=== PATIENT | female | born 1965 | race African-American/Black ===

== ENCOUNTER 2018-11-08 09:14 | Emergency (ER) | payer MEDICAID ==
[~2018-11-08] VITALS: Ht 167.6 cm; Wt 99.3 kg
[2018-11-08 09:18] VITALS: BP 143/64
[2018-11-08] MEDS ORDERED: NKM (09:23)
--- NOTE | 2018-11-08 09:47 | Emergency Room Report ---
History of Present Illness General Chief Complaint: Lower Back Pain or Injury Source: Patient Present Illness HPI 53-year-old female presents after increased low back pain. Patient reports having fallen off of a object approximately 3 weeks ago. She reports having persistent pain. She reports having intermittent leakage of urine. She reports having some bladder fullness. She denies any vomiting. She reports having some intermittent abdominal pain. Patient states she fell approximately 3 feet onto a sand. She reports having pain primarily to the left side of her low back. She had been able to ambulate without assistance. Reports having intermittent worsening pain. Pain is worse with left lateral flexion. She reports having bilateral lower extremity pain this does not go below her thigh Allergies: Coded Allergies: No Known Allergies (Unverified , 11/08/18) Patient History Past Medical History: see triage record Last Menstrual Period: Reviewed Nursing Documentation: PMH: Agreed; PSxH: Agreed Nursing Documentation-[facility] Past Medical History: No Stated History Review of Systems All Other Systems: negative except mentioned in HPI Physical Exam Vital Signs Date Time Temp Pulse Resp B/P (MAP) Pulse Ox O2 Delivery O2 Flow Rate FiO2 11/08/18 09:18 97.7 60 16 143/64 (90) 99 Room Air Sp02 EP Interpretation: reviewed, normal General Appearance: normal inspection, well appearing, no apparent distress, alert, GCS 15, non-toxic Head: atraumatic ENT: normal ENT inspection, hearing grossly normal, normal voice Neck: normal inspection, full range of motion, supple, no bony tend Respiratory: normal inspection, lungs clear, normal breath sounds, no respiratory distress, no retraction, no wheezing Cardiovascular #1: regular rate, rhythm, no edema Gastrointestinal: normal inspection, normal bowel sounds, non tender, soft, no guarding, no hernia Genitourinary: no CVA tenderness Musculoskeletal: normal inspection, back normal, normal range of motion Neurologic: normal inspection, alert, responsive, speech normal Psychiatric: normal inspection, judgement/insight normal, mood/affect normal Medical Decision Making Diagnostic Impression: Primary Impression: Low back pain Additional Impression: Facet arthropathy, lumbar ER Course Patient presented for low back pain. Differential diagnosis included but was not limited to herniated disc, cauda equina syndrome, abdominal aortic aneurysm , perforated ulcer, spinal epidural abscess, spinal stenosis, lumbar fracture, metastatic lesion, pyelonephritis. Patient was noted to be ambulatory without assistance. She does report some incontinence and so MRI was ordered. MRI read by radiology showed no evidence of acute injury mild lower lumbar facet arthropathy was noted. Not appear to have any evidence of acute neurologic deficit. She was given prescription for symptomatic treatment. She was advised to recheck with primary care physician in 1-2 days. Patient to return for any worsening, pain, fever, or other concerns. Labs Test 11/08/18 09:25 Urine Color Pale yellow Urine Appearance Clear Urine pH 5 (4.5-8.0) Urine Specific [place] 1.020 (1.005-1.035) Urine Protein Negative (NEGATIVE) Urine Glucose (UA) Negative (NEGATIVE) Urine Ketones Negative (NEGATIVE) Urine Blood 1+ (NEGATIVE) Urine Nitrite Negative (NEGATIVE) Urine Bilirubin Negative (NEGATIVE) Urine Urobilinogen Normal MG/DL (0.0-1.0) Urine Leukocyte Esterase Negative (NEGATIVE) Urine RBC 2-4 /HPF (0 - 2) Urine WBC 0-2 /HPF (0 - 2) Urine Squamous Epithelial Cells Moderate /LPF (NONE/OCC) Urine Bacteria Few /HPF (NONE) Urine HCG, Qualitative Negative (NEGATIVE) Last Vital Signs Date Time Temp Pulse Resp B/P (MAP) Pulse Ox O2 Delivery O2 Flow Rate FiO2 11/08/18 09:18 97.7 60 16 143/64 (90) 99 Room Air Status: improved Disposition: HOME, SELF-CARE Condition: Stable Scripts Cyclobenzaprine Hcl* (FLEXERIL*) 10 Mg Tablet 10 MG ORAL TID PRN for Muscle Spasm, #20 TAB Prov: Allan Alexander MD 11/08/18 Allan Alexander MD Nov 08, 2018 09:47
--- NOTE | 2018-11-08 10:00 | NUR ---
ED Nurse Note: Patient walked in to ER due to increased pressure pain in the pelvic and low back with intermittent loss of bladder control; s/p fall 3 weeks ago. Seen by [facility] at that time. Patient states 'I just fell' and patient does not state which side she fell on. Patient awake, alert, oriented x4. Regular, unlabored breathing noted. Ambulating to the room with steady gait. No limping noted. Sitting in bed without facial grimacing or guarding/using cell phone.
--- NOTE | 2018-11-08 10:00 | NUR ---
ED Nurse Note: Yellow urine collected and sent.
[2018-11-08 10:14] LABS: APPEARANCE,URINE CLEAR; BILIRUBIN, URINE NEGATIVE (NEGATIVE); COLOR,URINE PALE YELLOW; GLUCOSE, URINE (UA) NEGATIVE (NEGATIVE); KETONES,URINE NEGATIVE (NEGATIVE); LEUKOCYTE ESTERASE ,URINE NEGATIVE (NEGATIVE); NITRITE,URINE NEGATIVE (NEGATIVE); PH,URINE 5 (4.5-8.0); PROTEIN,URINE NEGATIVE (NEGATIVE); UROBILINOGEN,URINE NORMAL MG/DL (0.0-1.0)
--- NOTE | 2018-11-08 11:37 | NUR ---
ED Nurse Note: Patient back from MRI scan. Sitting in bed without facial grimacing or guarding. Friend at bedside.
--- NOTE | 2018-11-08 11:44 | Diagnostic Imaging Report ---
Indication: Back pain Technique: MRI examination of the lumbar spine was performed in a 1.5 Karo magnet. Sequences obtained include sagittal and axial T1 and T2 fast spin echo, and sagittal STIR. Comparison: none Findings: Height and configuration of the vertebral bodies are within normal limits. Bone marrow signal is normal. Alignment is normal. There is no evidence of stenosis of the central canal or neural foramen. The height and configuration of the intervertebral discs are normal. The lumbar facets at L4-5 and L5-S1 are mildly hypertrophic particularly at L4-5 consistent with facet arthropathy. Hypertrophied ligamentum flavum noted. The visualized part of the distal spinal cord is unremarkable. Conus medullaris seen at T12/L1. No paraspinous or paravertebral soft tissue abnormality seen. No abnormal fluid collections are identified. IMPRESSION: No evidence of acute injury. Mild lower lumbar facet arthropathy noted. No evidence of significant stenosis of the central canal, lateral recess or neural foramen.
[2018-11-08] MEDS ORDERED: CYCLOBENZAPRINE10 MG ORAL ×2 (12:08→12:14)
[2018-11-08 12:25] VITALS: BP 143/64
--- NOTE | 2018-11-08 12:25 | NUR ---
ER DISCHARGE NOTE: Patient is cleared to be discharged per ERMD, pt is aox4, on room air, with stable vital signs. pt was given dc and prescription instructions, pt was able to verbalize understanding, pt id band removed without complications. pt is able to ambulate with steady gait. pt took all belongings.
== END 2018-11-08 12:25 | disposition home or self-care (01) ==
LOC: EMR 09:30
DX: M54.5 Low back pain (principal); M46.96 Unspecified inflammatory spondylopathy, lumbar region
CPT/HCPCS: 72148; 81003; 81025; Z7502; 99284

== ENCOUNTER 2019-06-07 20:02 | Emergency (ER) | payer SELFPAY ==
[~2019-06-07] VITALS: Ht 167.6 cm; Wt 97.5 kg
[~2019-06-07 20:02] MED LIST: CYCLOBENZAPRINE10 MG ORAL; NKM
--- NOTE | 2019-06-07 20:09 | NUR ---
pt not in lobby, no answer, left department
[2019-06-07 20:30] VITALS: BP 123/62
--- NOTE | 2019-06-07 20:30 | NUR ---
ED Nurse Note: Patient walked in to ER from home c/o lower abdominal pain x 3 months, states took test 3 mons ago, no f/u, now cramping, no bleeding, pain at 10/10.
--- NOTE | 2019-06-07 20:39 | NUR ---
Urine sample collected, sent.
--- NOTE | 2019-06-07 20:47 | Emergency Room Report ---
History of Present Illness General Chief Complaint: Abdominal Pain Source: Patient Present Illness HPI 53-year-old female presents to ED complaining of cramping pain. States she had the pain on and off for the last 3 months. Dull, 3 out of 10, nonradiating. Denies any vaginal bleeding. Denies any discharge. Denies that she took a test 3 months ago and states she was . Denies having any follow-up since there. Denies any nausea or vomiting. No other aggravating relieving factors. Denies any other associated symptoms Allergies: Coded Allergies: No Known Allergies (Unverified , 11/08/18) COVID-19 Screening Contact w/high risk pt: No Recent Travel to affected area: No Experienced COVID-19 symptoms?: No COVID-19 symptoms experienced: Fever (T>100.4F or >38C) Patient History Past Medical History: none Past Surgical History: none Pertinent Family History: none Social History: Denies: smoking, alcohol use, drug use Now: No Immunizations: UTD Reviewed Nursing Documentation: PMH: Agreed; PSxH: Agreed Review of Systems All Other Systems: negative except mentioned in HPI Physical Exam Vital Signs Date Time Temp Pulse Resp B/P (MAP) Pulse Ox O2 Delivery O2 Flow Rate FiO2 06/07/19 20:15 97.5 80 16 123/62 (82) 95 Room Air Sp02 EP Interpretation: reviewed, normal General Appearance: no apparent distress, alert, GCS 15, non-toxic, obese Head: normocephalic, atraumatic Eyes: bilateral eye normal inspection, bilateral eye PERRL ENT: hearing grossly normal, normal pharynx, no angioedema, normal voice Neck: full range of motion, supple/symm/no masses Respiratory: chest non-tender, lungs clear, normal breath sounds, speaking full sentences Cardiovascular #1: regular rate, rhythm, no edema Cardiovascular #2: 2+ carotid (R), 2+ carotid (L), 2+ radial (R), 2+ radial (L) , 2+ dorsalis pedis (R), 2+ dorsalis pedis (L) Gastrointestinal: normal bowel sounds, non tender, soft, non-distended, no guarding, no rebound Rectal: deferred Genitourinary: normal inspection, no CVA tenderness Musculoskeletal: back normal, normal range of motion, gait/station normal, non- tender Neurologic: alert, motor strength/tone normal, oriented x3, sensory intact, responsive, speech normal Psychiatric: judgement/insight normal, memory normal, mood/affect normal, no suicidal/homicidal ideation Reflexes: 3+ bicep (R), 3+ bicep (L), 3+ tricep (R), 3+ tricep (L), 3+ knee (R) , 3+ knee (L) Skin: no rash Lymphatic: no adenopathy Medical Decision Making Diagnostic Impression: Primary Impression: Pelvic cramping ER Course Hospital Course 53-year-old female presents with pelvic cramping with dysuria Differential diagnoses include: UTI, cystitis, pyelonephritis Clinical course Patient placed on stretcher. After initial history and physical I ordered UA, urine . UA noted to be unremarkable. She thought she could be . Insist that she is still having periods. I explained that she is not . Exam unremarkable. Safe for discharge for close outpatient follow-up. I will provide referrals Diagnosis - pelvic cramping Stable and discharged home. Instructed to followup with PMD. Return to ED if symptoms recur or worsen Labs Test 06/07/19 20:35 Urine Color Yellow Urine Appearance Slightly cloudy Urine pH 5 (4.5-8.0) Urine Specific [place] 1.025 (1.005-1.035) Urine Protein 1+ (NEGATIVE) Urine Glucose (UA) Negative (NEGATIVE) Urine Ketones Negative (NEGATIVE) Urine Blood 2+ (NEGATIVE) Urine Nitrite Negative (NEGATIVE) Urine Bilirubin Negative (NEGATIVE) Urine Urobilinogen Normal MG/DL (0.0-1.0) Urine Leukocyte Esterase Negative (NEGATIVE) Urine RBC 10-15 /HPF (0 - 2) Urine WBC 2-4 /HPF (0 - 2) Urine Squamous Epithelial Cells Moderate /LPF (NONE/OCC) Urine Amorphous Sediment Few /LPF (NONE) Urine Bacteria Few /HPF (NONE) Urine HCG, Qualitative Negative (NEGATIVE) Last Vital Signs Date Time Temp Pulse Resp B/P (MAP) Pulse Ox O2 Delivery O2 Flow Rate FiO2 06/07/19 20:15 97.5 80 16 123/62 (82) 95 Room Air Status: improved Disposition: HOME, SELF-CARE Condition: Stable Referrals: NOT CHOSEN IPA/,REFERRING (PCP) Clement Loza MD Jun 07, 2019 20:47
[2019-06-07 20:54] LABS: APPEARANCE,URINE SLIGHTLY CLOUDY; BILIRUBIN, URINE NEGATIVE (NEGATIVE); GLUCOSE, URINE (UA) NEGATIVE (NEGATIVE); KETONES,URINE NEGATIVE (NEGATIVE); LEUKOCYTE ESTERASE ,URINE NEGATIVE (NEGATIVE); NITRITE,URINE NEGATIVE (NEGATIVE); PH,URINE 5 (4.5-8.0); PROTEIN,URINE 1+ (NEGATIVE); UROBILINOGEN,URINE NORMAL MG/DL (0.0-1.0)
[2019-06-07 20:56] LABS: COLOR,URINE YELLOW
[2019-06-07 21:25] VITALS: BP 123/62
--- NOTE | 2019-06-07 21:25 | NUR ---
ED Nurse Note: Pt cleared by health care Provider for discharge. DC instructions/prescription was given and explained to pt and verbalized understanding of teachings. All medical deviecs such as ID band removed. Pt is AAO x4, ambulatory and left with all personal belongings.
== END 2019-06-07 21:26 | disposition home or self-care (01) ==
LOC: EMR 20:40
DX: R10.9 Unspecified abdominal pain (principal); R30.0 Dysuria; E66.9 Obesity, unspecified; Z68.34 Body mass index [BMI] 34.0-34.9, adult
CPT/HCPCS: 81003; 81025; 99283